=== PATIENT | female | born 1990 | race African-American/Black ===

== ENCOUNTER 2017-10-13 09:13 | Emergency (ER) | payer SELFPAY ==
[~2017-10-13] VITALS: Ht 167.6 cm; Wt 72.0 kg
[2017-10-13] MEDS ORDERED: CARBAMAZEPINE 100MG TABLET CHEW PO ONE (12:00)
[2017-10-13] MEDS ORDERED: KETOROLAC 60MG/2ML VIAL IM ONE (12:00)
[2017-10-13 16:36] VITALS: BP 116/79
== END 2017-10-13 16:38 | disposition home or self-care (01) ==
LOC: ER 09:13
DX: G93.9 Disorder of brain, unspecified (principal); R20.0 Anesthesia of skin; R42 Dizziness and giddiness; J45.909 Unspecified asthma, uncomplicated; F12.10 Cannabis abuse, uncomplicated
CPT/HCPCS: 70450; 81025; 96372; 99284; J1885